=== PATIENT | female | born 1995 | race Caucasian/White ===

== ENCOUNTER → 2016-04-28 | Outpatient (CLI) | payer OTHER ==
[~2016-04-28] MED LIST: ABL/5 PO; ALBUAER19 INH; AMPH30CA3 PO; BUPR-102 PO; LORA-741 PO; NORGTAB50 PO; TRAM-10 PO; TRAZ100T29 PO
[2016-05-01 03:20] LABS: CHLAMYDIA TRACH RNA*** NOT DETECTED (NOT DETECTED); GC (NEIS GONORRHOEAE)RNA** NOT DETECTED (NOT DETECTED)
== END | disposition home or self-care (01) ==
LOC: C.LABSPEC 16:15
PROVIDERS: ATTEND Obstetrics & Gynecology
DX: Z12.4 Encounter for screening for malignant neoplasm of cervix (principal); N76.0 Acute vaginitis

== ENCOUNTER → 2016-09-19 | Outpatient (CLI) | payer OTHER ==
[2016-09-23 01:44] LABS: CHLAMYDIA TRACH RNA*** NOT DETECTED (NOT DETECTED); GC (NEIS GONORRHOEAE)RNA** NOT DETECTED (NOT DETECTED)
== END | disposition home or self-care (01) ==
LOC: C.LABSPEC 15:04
PROVIDERS: ATTEND Obstetrics & Gynecology
DX: N94.9 Unspecified condition associated with female genital organs and menstrual cycle (principal)

== ENCOUNTER 2016-12-01 19:01 | Emergency (ER) | payer OTHER ==
[~2016-12-01] VITALS: Ht 162.6 cm; Wt 71.7 kg
[2016-12-01 19:15] VITALS: TEMP 36.4; Ht 162.6 cm; Wt 71.7 kg
[2016-12-01 19:54] LABS: URINE APPEARANCE CLOUDY (CLEAR); URINE BILIRUBIN NEG (NEG); URINE COLOR YELLOW; URINE EPITHELIAL CELL AUTO >30 /lpf (0-5); URINE NITRITE NEG (NEG); URINE SPECIFIC GRAVITY 1.012 (1.000-1.030); UROBILINOGEN NEG (NEG)
[2016-12-01 19:56] LABS: MANUAL MICROSCOPIC REQUIRED? NO; REVIEW REQ? NO
[2016-12-01] MEDS ORDERED: BUPR-83 PO (20:01)
[2016-12-01 20:19] LABS: BASO % 0.2 %; BASO ABS # 0.03 K/uL (0-0.2); COMPLETE YES; EOS % 0.6 %; HEMATOCRIT 39.8 % (37-47); IG% 0.2 %; LYMPH % 28.6 %; LYMPH ABS # 4.07 K/uL (1.2-3.4); MEAN CELL VOLUME 81.9 fL (80-100); MEAN CORPUSCULAR HEMOGLOBIN 28.6 pg (25-34); MEAN CORPUSCULAR HGB CONC 34.9 g/dl (32-36); MEAN PLATELET VOLUME 8.4 fL (7.4-10.4); MONO % 4.6 %; NEUT % 65.8 %; PLATELET COUNT 374 K/uL (130-400); RED BLOOD COUNT 4.86 M/uL (4.2-5.4); WHITE BLOOD COUNT 14.23 K/uL (4.8-10.8)
[2016-12-01 20:24] LABS: BENZODIAZEPINE, URINE NEG (NEG); COCAINE,URINE NEG (NEG); PHENCYCLIDINE, URINE NEG (NEG)
[2016-12-01 20:49] LABS: ALT/SGPT 15 U/L (12-78); BLOOD UREA NITROGEN 11 mg/dl (7-18); BUN/CREATININE RATIO 10.1 (10-20); CARBON DIOXIDE 23 mmol/L (21-32); CHLORIDE 106 mmol/L (98-107); CREATININE 1.04 mg/dl (0.60-1.20); GLUCOSE 99 mg/dl (70-99); POTASSIUM 3.3 mmol/L (3.5-5.1); SODIUM 139 mmol/L (136-145)
[2016-12-01 21:00] LABS: ALKALINE PHOSPHATASE 102 U/L (45-117); AST/SGOT 14 U/L (15-37)
[2016-12-01 21:03] LABS: ACETAMINOPHEN < 2 ug/ml (10-30)
[2016-12-01] MEDS ORDERED: LORAZEPAM 0.5 MG TAB PO STA (22:32)
[2016-12-01] MEDS ORDERED: TRAZODONE HCL 100 MG TAB PO STA (22:32)
[2016-12-01] MEDS ORDERED: ARIPIprazole TAB 5 MG TAB PO STA (22:32)
[2016-12-01] MEDS ORDERED: DOXYCYCLINE HYCLATE 100 MG CAP PO ONE (22:45)
[2016-12-01 23:12] VITALS: BP 120/62; PULSE 98; O2SAT 99
--- NOTE | 2016-12-02 00:06 | EMERGENCY ROOM VISIT NOTE ---
History Report prepared by Geovanny: Ariel Lopez Under the Supervision of: Dr. Kaveh Tavarez M.D. First contact with patient: 19:24 Chief Complaint: MENTAL HEALTH EVALUATION Stated Complaint: MR History of Present Illness The patient is a 21 year old female who presents to the Emergency Room with complaints of worsening depression that began a month ago. The patient states that she has not felt her self lately and has been "drained". She reports that she has not been doing well in school and has not had motivation. The patient reports that she has had a rough summer because her mother has had back problems and cardiac problems. She states that her grandmother due to cardiac issues. The patient admits to a suicidal ideation and reports that she has thought about a plan. She reports that whenever she is driving she thinks about driving off of the road or going to the train tracks to commit suicide. The patient denies ever attempting to follow through with her plans. The patient states that she currently attends [facility] and is currently a stephani. She reports that she went to [facility] counseling today and discussed her ongoing depression. The patient states that the counselor told her to do what she thinks will help her mental health and the patient admitted that she thought she should come to the hospital. She reports that she has never been admitted for mental health in the past. The patient reports that she has a history of depression and has been on the same antidepressant since the third grade. She states that her psychiatrist was Dr. Kwon until he transferred and she was with Dr. Perez for 7 years. The patient reports that recently she went back to Dr. Kwon. She reports that she has been on Risperdal in the past, but reports that this medicine made her worse. The patient states that she is currently taking an antibiotic for a sinus infection and takes Lorazepam daily. Source of History: patient Onset: a month ago Position: other (global) Quality: other (draining) Timing: worsening Associated Symptoms: + fatigue Review of Systems See HPI for pertinent positives and negatives. A total of ten systems were reviewed and were otherwise negative. Past Medical & Surgical Medical Problems: (1) Depression (2) History of adenoidectomy (3) Hx of tonsillectomy (4) Sinus infection Family History Cancer Diabetes mellitus Gallbladder disease Heart disease Hypertension Social History Smoking Status: Never Smoker Smokeless Tobacco Use: No Alcohol Use: occasionally Drug Use: none Marital Status: single Occupation Status: student Current/Historical Medications Scheduled Amphetamine-Dextroamphetamine 30MG (Adderall Xr 30MG), 30 MG PO QAM Aripiprazole (Abilify), 5 MG PO QPM Bupropion (Wellbutrin), 100 MG PO QAM Norgestimate-Ethinyl Estradiol (Previfem), 1 TAB PO DAILY Trazodone Hcl (Trazodone), 100 MG PO HS Scheduled PRN Albuterol Inhaler (Ventolin Inhaler), 2 PUFFS INH UD PRN for Asthma Symptoms Lorazepam (Ativan), 0.5 MG PO DAILY PRN for Anxiety Allergies Coded Allergies: Permethrin (Unverified Allergy, Mild, 12/01/16) Physical Exam Vital Signs Date Time Temp Pulse Resp B/P (MAP) Pulse Ox O2 Delivery O2 Flow Rate FiO2 12/01/16 23:12 98 14 120/62 99 Room Air 12/01/16 20:59 95 20 120/68 100 Room Air 12/01/16 19:15 36.4 110 20 131/82 100 Room Air Physical Exam GENERAL: Awake, alert, well appearing, no distress HENT: Normocephalic, atraumatic. TM's normal. Oropharynx unremarkable. EYES: PERRL. EOMI. Normal conjunctiva. Sclera non-icteric. NECK: Supple. No nuchal rigidity. FROM. No JVD or bruit. RESPIRATORY: CTA CARDIAC: RRR. No murmur. ABDOMEN: Soft, non distended. No tenderness to palpation. No rebound or guarding. No masses. MUSCULOSKELETAL: Unremarkable. No edema. No discoloration. Gross motor strength symmetric. NEURO: Cranial nerves 2-12 grossly intact. Normal sensorium. No sensory or motor deficits noted. Speech normal. No pronator drift. SKIN: No rash or jaundice noted. LYMPH: No adenopathy. PSYCH: Depressed mood. Positive suicidal ideation. Flat affect. Medical Decision & Procedures Laboratory Results 12/01/16 20:05 Red Blood Count 4.86, Mean Corpuscular Volume 81.9, Mean Corpuscular Hemoglobin 28.6, Mean Corpuscular Hemoglobin Concent 34.9, Mean Platelet Volume 8.4, Neutrophils (%) (Auto) 65.8, Lymphocytes (%) (Auto) 28.6, Monocytes (%) (Auto) 4.6, Eosinophils (%) (Auto) 0.6, Basophils (%) (Auto) 0.2, Neutrophils # (Auto) 9.37, Lymphocytes # (Auto) 4.07, Monocytes # (Auto) 0.65, Eosinophils # (Auto) 0.08, Basophils # (Auto) 0.03 12/01/16 20:05 Test 12/01/16 19:35 12/01/16 20:05 Urine Color YELLOW Urine Appearance CLOUDY (CLEAR) Urine pH 6.0 (4.5-7.5) Urine Specific [place] 1.012 (1.000-1.030) Urine Protein NEG (NEG) Urine Glucose (UA) NEG (NEG) Urine Ketones NEG (NEG) Urine Occult Blood NEG (NEG) Urine Nitrite NEG (NEG) Urine Bilirubin NEG (NEG) Urine Urobilinogen NEG (NEG) Urine Leukocyte Esterase SMALL (NEG) Urine WBC (Auto) 10-30 /hpf (0-5) Urine RBC (Auto) 0-4 /hpf (0-4) Urine Hyaline Casts (Auto) 1-5 /lpf (0-5) Urine Epithelial Cells (Auto) >30 /lpf (0-5) Urine Bacteria (Auto) NEG (NEG) Urine Test NEG (NEG) Urine Opiates Screen NEG (NEG) Urine Methadone, Qualitative NEG (NEG) Urine Barbiturates NEG (NEG) Urine Phencyclidine (PCP) Level NEG (NEG) Ur Amphetamine/Methamphetamine POS (NEG) MDMA (Ecstasy) Screen POS (NEG) Urine Benzodiazepines Screen NEG (NEG) Urine Cocaine Metabolite NEG (NEG) Urine Marijuana (THC) NEG (NEG) White Blood Count 14.23 K/uL (4.8-10.8) Red Blood Count 4.86 M/uL (4.2-5.4) Hemoglobin 13.9 g/dL (12.0-16.0) Hematocrit 39.8 % (37-47) Mean Corpuscular Volume 81.9 fL (80-100) Mean Corpuscular Hemoglobin 28.6 pg (25-34) Mean Corpuscular Hemoglobin Concent 34.9 g/dl (32-36) Platelet Count 374 K/uL (130-400) Mean Platelet Volume 8.4 fL (7.4-10.4) Neutrophils (%) (Auto) 65.8 % Lymphocytes (%) (Auto) 28.6 % Monocytes (%) (Auto) 4.6 % Eosinophils (%) (Auto) 0.6 % Basophils (%) (Auto) 0.2 % Neutrophils # (Auto) 9.37 K/uL (1.4-6.5) Lymphocytes # (Auto) 4.07 K/uL (1.2-3.4) Monocytes # (Auto) 0.65 K/uL (0.11-0.59) Eosinophils # (Auto) 0.08 K/uL (0-0.5) Basophils # (Auto) 0.03 K/uL (0-0.2) RDW Standard Deviation 37.5 fL (36.4-46.3) RDW Coefficient of Variation 12.5 % (11.5-14.5) Immature Granulocyte % (Auto) 0.2 % Immature Granulocyte # (Auto) 0.03 K/uL (0.00-0.02) Anion Gap 10.0 mmol/L (3-11) Est Creatinine Clear Calc Drug Dose 83.1 ml/min Estimated GFR () 88.9 Estimated GFR (Non- 76.7 BUN/Creatinine Ratio 10.1 (10-20) Calcium Level 9.0 mg/dl (8.5-10.1) Total Bilirubin 0.5 mg/dl (0.2-1) Direct Bilirubin < 0.1 mg/dl (0-0.2) Aspartate Amino Transf (AST/SGOT) 14 U/L (15-37) Alanine Aminotransferase (ALT/SGPT) 15 U/L (12-78) Alkaline Phosphatase 102 U/L (45-117) Total Protein 7.7 gm/dl (6.4-8.2) Albumin 3.6 gm/dl (3.4-5.0) Thyroid Stimulating Hormone (TSH) 2.220 uIu/ml (0.300-4.500) Salicylates Level < 1.7 mg/dl (2.8-20) Acetaminophen Level < 2 ug/ml (10-30) Ethyl Alcohol mg/dL < 3.0 mg/dl (0-3) Laboratory results reviewed by me Medications Administered Medications (Trade) Dose Ordered Sig/Carmen Route Start Time Stop Time Status Last Admin Dose Admin Doxycycline Hyclate (Vibramycin Cap) 100 mg ONE ONCE PO 12/01/16 22:45 12/01/16 22:46 DC 12/01/16 22:44 100 MG Lorazepam (Ativan Tab) 0.5 mg NOW STAT PO 12/01/16 22:32 12/01/16 22:36 DC 12/01/16 22:32 0.5 MG Trazodone HCl (Desyrel Tab) 100 mg NOW STAT PO 12/01/16 22:32 12/01/16 22:36 DC 12/01/16 22:32 100 MG Aripiprazole (Abilify Tab) 5 mg NOW STAT PO 12/01/16 22:32 12/01/16 22:36 DC 12/01/16 22:32 5 MG ED Course 1946: The patient was evaluated in room A06. A complete history and physical exam was performed. 2218: The patient has been accepted at [facility]. I updated her on her results and treatment plan and she agrees. The patient is ready for transfer. Medical Decision Triage Nursing notes reviewed. The patient's presentation and history were concerning for depression and suicidal ideation. Etiologies such as mood disorder, toxicologic, infection, hypoglycemia, electrolyte abnormalities, cardiac sources, intracerebral event, neurologic, as well as others were entertained. The patient was evaluated. She had suicidal ideation and seemed depressed. She has a long history of depression. She has never been admitted. She is voluntary for admission. She had blood work obtained. She has subtle leukocytosis but is currently taking an antibiotic for an infection were she does not know the source. She has no abdominal tenderness and a benign chest examination. Her urinalysis was performed and cultured. The patient had no other significant laboratory abnormalities. She was given her evening medications of trazodone, Abilify, her control pill, doxycycline, and a dose of lorazepam. The patient was accepted at [facility] and was prepped for transfer. She consented. Paperwork was signed. By the evaluation outlined above other emergent etiologies such as those listed in the differential, as well as others, were deemed relatively unlikely. The patient was educated about the findings as listed above. All questions were answered and the patient was pleased with the treatment. Secure transfer was arranged for her travel to [facility]. Medication Reconcilliation Current Medication List: was personally reviewed by me Blood Pressure Screening Patient's blood pressure: Normal blood pressure Impression Primary Impression: Mood disorder Additional Impression: Suicidal ideation Scribe Attestation The scribe's documentation has been prepared under my direction and personally reviewed by me in its entirety. I confirm that the note above accurately reflects all work, treatment, procedures, and medical decision making performed by me. Departure Information Dispostion Mental Health Acute Care Referrals No Doctor, Assigned (PCP) Patient Instructions My [facility] Problem Qualifiers
== END 2016-12-01 23:40 ==
LOC: C.EDB 19:03 → C.EDA 23:40
DX: F39 Unspecified mood [affective] disorder (principal); R45.851 Suicidal ideations; F32.9 Major depressive disorder, single episode, unspecified; Z83.3 Family history of diabetes mellitus; Z82.49 Family history of ischemic heart disease and other diseases of the circulatory system

== ENCOUNTER 2017-04-30 12:15 | Emergency (ER) | payer OTHER ==
[~2017-04-30] VITALS: Ht 165.1 cm; Wt 72.0 kg
[~2017-04-30 12:15] MED LIST changes: -BUPR-102 PO; +BUPR-83 PO; -TRAM-10 PO
[2017-04-30 12:18] VITALS: TEMP 36.6; Ht 165.1 cm; Wt 72.0 kg
[2017-04-30] MEDS ORDERED: KETOROLAC TROMETHAMINE 30 MG/ML VIAL IV STA (12:39)
[2017-04-30 13:14] LABS: BASO % 0.2 %; BASO ABS # 0.02 K/uL (0-0.2); EOS % 0.8 %; EOS ABS # 0.07 K/uL (0-0.5); HEMATOCRIT 38.5 % (37-47); IG# 0.02 K/uL (0.00-0.02); LYMPH % 29.2 %; LYMPH ABS # 2.47 K/uL (1.2-3.4); MEAN CELL VOLUME 82.1 fL (80-100); MEAN CORPUSCULAR HEMOGLOBIN 27.7 pg (25-34); MEAN CORPUSCULAR HGB CONC 33.8 g/dl (32-36); MEAN PLATELET VOLUME 8.5 fL (7.4-10.4); MONO % 5.7 %; MONO ABS # 0.48 K/uL (0.11-0.59); NEUT % 63.9 %; NEUT ABS # 5.41 K/uL (1.4-6.5); PLATELET COUNT 278 K/uL (130-400); RED CELL DISTRIBUTION WIDTH CV 12.9 % (11.5-14.5); RED CELL DISTRIBUTION WIDTH SD 38.8 fL (36.4-46.3); WHITE BLOOD COUNT 8.47 K/uL (4.8-10.8)
[2017-04-30 13:31] LABS: ALBUMIN 3.4 gm/dl (3.4-5.0); CALCIUM 8.8 mg/dl (8.5-10.1); CREATININE 0.76 mg/dl (0.60-1.20); POTASSIUM 3.5 mmol/L (3.5-5.1)
[2017-04-30 13:33] LABS: TOTAL PROTEIN 6.9 gm/dl (6.4-8.2)
[2017-04-30] MEDS ORDERED: IBUP-1050 PO (13:35)
[2017-04-30] MEDS ORDERED: DULO-24 PO (13:35)
--- NOTE | 2017-04-30 14:43 | EMERGENCY ROOM VISIT NOTE ---
History First contact with patient: 12:26 Chief Complaint: PAIN (GENERALIZED) Stated Complaint: PAIN EVERYWHERE - TROUBLE BREATHING History of Present Illness The patient is a 21 year old female who presents to the Emergency Room with complaints of bilateral feet pain which started 2 weeks ago and then 4 days ago she started with pain all over her body. She states that she thinks she feels short of breath due to the pain. The patient is asthmatic but cannot find her albuterol inhaler. The patient denies any cough or any recent URI symptoms. The patient denies any fever, nausea, vomiting. Patient denies any chest pain or abdominal pain. The patient states that the pain is a dull achy with intermittent stabbing which started mainly on her right foot but then went to her left foot. She states if she touches her feet it does not hurt. The pain has now radiated all over entire body. She has taken Motrin without any relief. The patient states that she had a tick on her either this year or last year and her mother informed her that maybe her symptoms are due to Lyme's disease which is why she is here. The patient could not get in to see her PCP until Thursday. Review of Systems 10 system review was performed and was negative unless stated otherwise history of present illness. Past Medical/Surgical History Medical Problems: (1) Depression (2) History of adenoidectomy (3) Hx of tonsillectomy (4) Sinus infection Family History Cancer Diabetes mellitus Gallbladder disease Heart disease Hypertension Social History Smoking Status: Current Some Day Smoker Alcohol Use: occasionally Drug Use: none Marital Status: single Occupation Status: student Current/Historical Medications Scheduled Amphetamine-Dextroamphetamine 30MG (Adderall Xr 30MG), 30 MG PO QAM Duloxetine HCl (Cymbalta), 1 CAP PO QAM Ibuprofen (Advil), 200 MG PO UD Norgestimate-Ethinyl Estradiol (Previfem), 1 TAB PO DAILY Trazodone Hcl (Trazodone), 100 MG PO HS Scheduled PRN Albuterol Inhaler (Ventolin Inhaler), 2 PUFFS INH UD PRN for Asthma Symptoms Lorazepam (Ativan), 0.5 MG PO DAILY PRN for Anxiety Physical Exam Vital Signs Date Time Temp Pulse Resp B/P (MAP) Pulse Ox O2 Delivery O2 Flow Rate FiO2 04/30/17 14:04 80 18 119/61 99 Room Air 04/30/17 12:18 36.6 109 18 103/69 100 Physical Exam GENERAL: 21-year-old white female appears in no acute distress. MENTAL Status: Patient is alert and oriented 3. The patient answers questions appropriately. NECK: Supple, no lymphadenopathy noted. No carotid bruits noted. LUNGS: Clear auscultation without wheezes rales or rhonchi. CARDIAC: Regular rate and rhythm without murmur. Pulses is full and equal throughout. ABDOMEN: Positive bowel sounds all 4 quadrants. Soft, nontender to palpation without organomegaly or masses. NEURO:Cranial nerves two through 12 intact. Cerebellar function intact with [id number]. Fine motor intact with alternating finger motions. MUSCULOSKELETAL: Bilateral upper and lower extremities are nontender to palpation throughout. With full range of motion of all joints. Medical Decision & Procedures Laboratory Results 04/30/17 13:00 Red Blood Count 4.69, Mean Corpuscular Volume 82.1, Mean Corpuscular Hemoglobin 27.7, Mean Corpuscular Hemoglobin Concent 33.8, Mean Platelet Volume 8.5, Neutrophils (%) (Auto) 63.9, Lymphocytes (%) (Auto) 29.2, Monocytes (%) (Auto) 5.7, Eosinophils (%) (Auto) 0.8, Basophils (%) (Auto) 0.2, Neutrophils # (Auto) 5.41, Lymphocytes # (Auto) 2.47, Monocytes # (Auto) 0.48, Eosinophils # (Auto) 0.07, Basophils # (Auto) 0.02 04/30/17 13:00 Test 04/30/17 13:00 White Blood Count 8.47 K/uL (4.8-10.8) Red Blood Count 4.69 M/uL (4.2-5.4) Hemoglobin 13.0 g/dL (12.0-16.0) Hematocrit 38.5 % (37-47) Mean Corpuscular Volume 82.1 fL (80-100) Mean Corpuscular Hemoglobin 27.7 pg (25-34) Mean Corpuscular Hemoglobin Concent 33.8 g/dl (32-36) Platelet Count 278 K/uL (130-400) Mean Platelet Volume 8.5 fL (7.4-10.4) Neutrophils (%) (Auto) 63.9 % Lymphocytes (%) (Auto) 29.2 % Monocytes (%) (Auto) 5.7 % Eosinophils (%) (Auto) 0.8 % Basophils (%) (Auto) 0.2 % Neutrophils # (Auto) 5.41 K/uL (1.4-6.5) Lymphocytes # (Auto) 2.47 K/uL (1.2-3.4) Monocytes # (Auto) 0.48 K/uL (0.11-0.59) Eosinophils # (Auto) 0.07 K/uL (0-0.5) Basophils # (Auto) 0.02 K/uL (0-0.2) RDW Standard Deviation 38.8 fL (36.4-46.3) RDW Coefficient of Variation 12.9 % (11.5-14.5) Immature Granulocyte % (Auto) 0.2 % Immature Granulocyte # (Auto) 0.02 K/uL (0.00-0.02) Anion Gap 7.0 mmol/L (3-11) Est Creatinine Clear Calc Drug Dose 116.5 ml/min Estimated GFR () 130.0 Estimated GFR (Non- 112.1 BUN/Creatinine Ratio 9.3 (10-20) Calcium Level 8.8 mg/dl (8.5-10.1) Total Bilirubin 0.8 mg/dl (0.2-1) Direct Bilirubin 0.1 mg/dl (0-0.2) Aspartate Amino Transf (AST/SGOT) 17 U/L (15-37) Alanine Aminotransferase (ALT/SGPT) 19 U/L (12-78) Alkaline Phosphatase 117 U/L (45-117) Total Protein 6.9 gm/dl (6.4-8.2) Albumin 3.4 gm/dl (3.4-5.0) Lipase 125 U/L (73-393) Lyme Disease IgG Antibody NEG (NEG) Lyme Disease IgM Antibody NEG (NEG) Medications Administered Medications (Trade) Dose Ordered Sig/Carmen Route Start Time Stop Time Status Last Admin Dose Admin Ketorolac Tromethamine (Toradol Inj) 30 mg NOW STAT IV 04/30/17 12:39 04/30/17 12:40 DC 04/30/17 13:01 30 MG ED Course The patient was evaluated. The patient's EMR medication list were reviewed. IV access was obtained. She was given Toradol 30 mg IV for pain. CBC differential, renal profile, LFTs and lipase levels were ordered. Lyme's test was ordered. Labs are reviewed and were unremarkable. Lyme's test was negative. The patient was informed of the findings and discharged home in stable condition. Medical Decision The patient presented today basically concerned that she had Lyme's disease therefore a Lyme titer was drawn which was negative. [place] Drug Monitoring Program Search Results: patient reviewed within database Medication Reconcilliation Current Medication List: was personally reviewed by me Blood Pressure Screening Patient's blood pressure: Normal blood pressure Impression Primary Impression: Generalized pain Departure Information Dispostion Home / Self-Care Condition GOOD Referrals No Doctor, Assigned (PCP) Forms HOME CARE DOCUMENTATION FORM, IMPORTANT VISIT INFORMATION, WORK / SCHOOL INSTRUCTIONS Patient Instructions My [facility] Additional Instructions You do not have Lyme's disease. If your symptoms persist keep your scheduled appointment with your PCP on Thursday for further evaluation and treatment.
[2017-04-30 15:21] VITALS: BP 123/70; PULSE 94; O2SAT 100
== END 2017-04-30 15:24 | disposition home or self-care (01) ==
LOC: C.EDB 12:16
DX: R52 Pain, unspecified (principal); F32.9 Major depressive disorder, single episode, unspecified; Z83.3 Family history of diabetes mellitus; Z82.49 Family history of ischemic heart disease and other diseases of the circulatory system; F17.200 Nicotine dependence, unspecified, uncomplicated

== ENCOUNTER → 2017-05-27 | Outpatient (CLI) | payer OTHER ==
[~2017-05-27] MED LIST changes: -ABL/5 PO; -BUPR-83 PO; +DULO-24 PO; +IBUP-1050 PO
== END | disposition home or self-care (01) ==
LOC: C.PAPS 10:50
PROVIDERS: ATTEND Physician Assistant
DX: Z01.419 Encounter for gynecological examination (general) (routine) without abnormal findings (principal)

== ENCOUNTER → 2017-05-27 | Outpatient (CLI) | payer OTHER | END | disposition home or self-care (01) | LOC: C.LABSPEC 17:33 | PROVIDERS: ATTEND Physician Assistant | DX: Z01.419 Encounter for gynecological examination (general) (routine) without abnormal findings (principal) ==